=== PATIENT | female | born 1995 | race Caucasian/White ===

== ENCOUNTER 2024-09-12 10:12 | Observation (INO) ==
[2024-09-12 11:23] VITALS: BP 144/74
[2024-09-12] MEDS ORDERED: Nalbuphine 10 MG/ML 1 ML VIAL IV PRN (12:24)
[2024-09-12] MEDS ORDERED: Lidocaine 1% VIAL 10 MG/ML 30 ML VIAL INJ PRN (12:24)
[2024-09-12] MEDS ORDERED: Lactated Ringers 1000 ml BAG 1,000 ML IV ONE (12:24)
[2024-09-12] MEDS ORDERED: Lactated Ringers 1000 ml BAG 1,000 ML IV SCH (13:00)
[2024-09-12 14:01] LABS: Urine Creatinine Concentration 74.37 mg/dL (20.00-320.00); Urine TP Creat Ratio 0.2 mg/mg
[2024-09-12 14:11] LABS: Urine Benzodiazepine Screen None Detected (None Detect); Urine Cannabinoids Screen None Detected (None Detect); Urine Opiates Screen None Detected (None Detect)
[2024-09-12] MEDS: miSOPROStol 100 mcg TAB VAGINAL SCH (14:27)
[2024-09-12 14:37] LABS: Potassium 3.8 mmol/L (3.5-5.0)
[2024-09-12 14:38] LABS: Albumin 3.8 g/dL (3.5-5.7); Albumin/Globulin Ratio 1.5 (1-3); Calcium 8.9 mg/dL (8.6-10.3); Creatinine, Serum 0.44 mg/dL (0.51-0.95); Globulin 2.6 g/dL (2-4); Total Bilirubin 0.4 mg/dL (0.2-1.0); Total Protein 6.4 g/dL (6.4-8.9); Uric Acid 3.4 mg/dL (2.3-6.6); eGFR CKD-EPI 132.5 (>60)
[2024-09-12 14:41] LABS: ABS Basophils 0.1 10^3/uL (0.0-0.1); ABS Eosinophils 0.1 10^3/uL (0.0-0.5); ABS Lymphocytes 2.8 10^3/uL (1.0-4.8); ABS Monocytes 0.6 10^3/uL (0.0-0.9); ABS Neutrophils 8.3 10^3/uL (1.5-7.6); ABS Nucleated RBC 0.01 10^3/ul; Eosinophil % 0.5 %; Hematocrit 35.7 % (35-45); Hemoglobin 12.1 g/dL (11.5-14.3); Lymphocyte % 23.6 %; Mean Corpuscular Hemoglobin 28.9 pg (27-33); Mean Corpuscular Hgb Conc 33.7 g/dL (31-36); Mean Corpuscular Volume 85.8 fL (80-97); Mean Platelet Volume 7.4 fL (7.5-11.2); Nucleated Red Blood Cells % 0.1 %/100WBC (0.0-0.8); Platelet Count 368 10^3/uL (150-450); Red Blood Count 4.17 10^6/uL (3.63-4.92); Red Cell Distribution Width 13.3 % (12-17); White Blood Count 11.8 10^3/uL (3.8-11.8)
[2024-09-12] MEDS: Buffered Lidocaine 1% SYRIN 1 ml INTRADERM ONE (19:15)
[2024-09-12] MEDS: Dinoprostone 10 MG VAG.SUPP VAGINAL ONE (20:51)
== END 2024-09-13 12:25 | disposition home or self-care (01) ==
LOC: MCHOB 10:12 → MCHOBOUT 10:12 → MCHOB 12:24 → MCHOBOUT 09-13 12:25 → UNDODEPREF 09-13 12:47

== ENCOUNTER 2024-09-15 18:00 | Inpatient (IN) ==
[2024-09-15] MEDS ORDERED: Lidocaine 1% VIAL 10 MG/ML 30 ML VIAL INJ PRN (20:00)
[2024-09-15] MEDS ORDERED: Nalbuphine 10 MG/ML 1 ML VIAL IV PRN (20:00)
[2024-09-15] MEDS: Buffered Lidocaine 1% SYRIN 1 ml INTRADERM ONE (20:21)
[2024-09-15 20:25] LABS: ABS Eosinophils 0.1 10^3/uL (0.0-0.5); ABS Lymphocytes 2.4 10^3/uL (1.0-4.8); ABS Monocytes 0.6 10^3/uL (0.0-0.9); ABS Neutrophils 8.3 10^3/uL (1.5-7.6); Eosinophil % 0.6 %; Hematocrit 34.9 % (35-45); Hemoglobin 11.7 g/dL (11.5-14.3); Lymphocyte % 20.8 %; Mean Corpuscular Hemoglobin 28.6 pg (27-33); Mean Corpuscular Hgb Conc 33.4 g/dL (31-36); Mean Corpuscular Volume 85.5 fL (80-97); Mean Platelet Volume 7.4 fL (7.5-11.2); Platelet Count 367 10^3/uL (150-450); Red Blood Count 4.08 10^6/uL (3.63-4.92); Red Cell Distribution Width 13.5 % (12-17); White Blood Count 11.5 10^3/uL (3.8-11.8)
[2024-09-15 20:29] LABS: Urine Appearance Clear; Urine Bilirubin Negative (Negative); Urine Blood Negative (Negative); Urine Color Light-Yellow; Urine Glucose 3+ (>=300 mg/dL) (Negative); Urine Ketones Negative (Negative); Urine Nitrite Negative (Negative); Urine Protein Negative (Negative); Urine Specific Gravity 1.011 (1.002-1.030); Urine Urobilinogen Negative (Negative); Urine pH 5.5 (5.0-8.0)
[2024-09-15 20:53] LABS: Urine Creatinine Concentration 58.71 mg/dL (20.00-320.00); Urine TP Creat Ratio 0.17 mg/mg
[2024-09-15 20:54] LABS: Albumin 3.8 g/dL (3.5-5.7); Albumin/Globulin Ratio 1.5 (1-3); Calcium 9.3 mg/dL (8.6-10.3); Creatinine, Serum 0.59 mg/dL (0.51-0.95); Globulin 2.5 g/dL (2-4); Potassium 3.8 mmol/L (3.5-5.0); Total Bilirubin 0.2 mg/dL (0.2-1.0); Total Protein 6.3 g/dL (6.4-8.9); eGFR CKD-EPI 123.5 (>60)
[2024-09-15 21:02] LABS: Urine Benzodiazepine Screen None Detected (None Detect); Urine Cannabinoids Screen None Detected (None Detect); Urine Opiates Screen None Detected (None Detect)
[2024-09-15] MEDS: miSOPROStol 100 mcg TAB VAGINAL ONE (22:34)
[2024-09-15] MEDS: Famotidine IV 10 MG/ML 2 ml VIAL (20 mg) IV SLOW PU PRN (23:09)
[2024-09-15] MEDS: Famotidine IV 10 MG/ML 2 ml VIAL (20 mg) ONE (23:13)
[2024-09-16] MEDS: Lactated Ringers 1000 ml BAG 1,000 ML IV SCH (02:47)
[2024-09-16] MEDS: miSOPROStol 100 mcg TAB VAGINAL ONE ×4 (03:48→20:02)
[2024-09-16] MEDS ORDERED: Famotidine IV 10 MG/ML 2 ml VIAL (20 mg) IV SLOW PU SCH (09:00)
[2024-09-16] MEDS: miSOPROStol 100 mcg TAB ONE (14:49)
[2024-09-17] MEDS: Lidocaine 2% JELLY 6 ML Topical TOPICAL ONE (00:22)
[2024-09-17] MEDS: Dinoprostone 10 MG VAG.SUPP VAGINAL ONE (00:45)
[2024-09-17] MEDS: Polyethylene Glycol 3350 17 GM PACKET PO PRN (01:33)
[2024-09-17] MEDS: Lactated Ringers 1000 ml BAG 1,000 ML IV ONE ×2 (05:33→20:48)
[2024-09-17] MEDS: Ondansetron 4 mg VIAL 2 MG/ML 2 ml VIAL IV PRN (05:55)
[2024-09-17 06:22] LABS: ABS Eosinophils 0.1 10^3/uL (0.0-0.5); ABS Lymphocytes 2.8 10^3/uL (1.0-4.8); ABS Monocytes 0.8 10^3/uL (0.0-0.9); ABS Neutrophils 8.3 10^3/uL (1.5-7.6); Eosinophil % 0.5 %; Hematocrit 37.4 % (35-45); Hemoglobin 12.9 g/dL (11.5-14.3); Lymphocyte % 23.8 %; Mean Corpuscular Hemoglobin 29.2 pg (27-33); Mean Corpuscular Hgb Conc 34.4 g/dL (31-36); Mean Corpuscular Volume 84.9 fL (80-97); Mean Platelet Volume 6.8 fL (7.5-11.2); Platelet Count 361 10^3/uL (150-450); Red Blood Count 4.41 10^6/uL (3.63-4.92); Red Cell Distribution Width 13.6 % (12-17); White Blood Count 11.9 10^3/uL (3.8-11.8)
[2024-09-17 06:44] LABS: Albumin 3.8 g/dL (3.5-5.7); Albumin/Globulin Ratio 1.2 (1-3); Calcium 9.1 mg/dL (8.6-10.3); Creatinine, Serum 0.53 mg/dL (0.51-0.95); Globulin 3.3 g/dL (2-4); Potassium 3.8 mmol/L (3.5-5.0); Total Bilirubin 0.3 mg/dL (0.2-1.0); Total Protein 7.1 g/dL (6.4-8.9); eGFR CKD-EPI 126.7 (>60)
[2024-09-17] MEDS: OBEPIDURAL (200 ML) 200 ML EPIDURAL SCH (06:45)
[2024-09-17] MEDS ORDERED: Phenylephrine 40 mcg/mL 10mL (400mcg) SYRINGE IV PUSH PRN ×2 (06:47)
[2024-09-17] MEDS: Oxytocin in LR 20,000 MILLI.UNIT/1,000 ML BAG IV SCH ×2 (09:12→20:55)
[2024-09-17] MEDS ORDERED: Bupivacaine 0.5% SDV PF 30ML VIAL ONE (17:58)
[2024-09-17] MEDS ORDERED: Oxytocin 10 UNITS/ML 1 ML VIAL ONE (17:59)
[2024-09-17] MEDS: Sodium Citrate/Citric Acid LIQ 15 ML UDC PO PRN (18:10)
[2024-09-17] MEDS: OBEPIDURAL (200 ML) 200 ML EPIDURAL ONE (18:15)
[2024-09-17] MEDS: ceFOXitin 2 GM IVPREMIX 2 GM/50 ML BAG IVPB ONE (18:25)
[2024-09-17] MEDS ORDERED: Ondansetron 4 mg VIAL 2 MG/ML 2 ml VIAL ONE (18:39)
[2024-09-17] MEDS ORDERED: Dexamethasone IV 4 MG/ML VIAL 1 ml VIAL ONE (18:39)
[2024-09-17] MEDS ORDERED: Morphine PF AMP (0.5MG/ML) 5 MG/10 ML AMP ONE (18:41)
[2024-09-17] MEDS ORDERED: fentaNYL 100 mcg/2 ml 50 MCG/ML VIAL ONE (18:41)
[2024-09-17] MEDS ORDERED: Phenylephrine 40 mcg/mL 10mL (400mcg) SYRINGE ONE (19:01)
[2024-09-17] MEDS: Carboprost Tromethamine 250 mcg 1 ml VIAL ONE (19:30)
[2024-09-17] MEDS ORDERED: Witch Hazel PAD JAR TOPICAL PRN (19:48)
[2024-09-17] MEDS ORDERED: Dibucaine 1% OINT 28.35 GM TUBE PR PRN (19:48)
[2024-09-17] MEDS ORDERED: Glycerin ADULT 2.4 gm SUPP PR PRN (19:48)
[2024-09-17] MEDS ORDERED: Acetaminophen IV 1 GM/100ML 1,000 MG/100 ML BAG IV ONE (19:52)
[2024-09-17] MEDS ORDERED: Lactated Ringers 1000 ml BAG 1,000 ML IV SCH (20:00)
[2024-09-17] MEDS ORDERED: Metoclopramide 5 MG/ML VIAL (10 mg) IV PRN (20:05)
[2024-09-17] MEDS ORDERED: Ondansetron 4 mg VIAL 2 MG/ML 2 ml VIAL IV PRN (20:05)
[2024-09-17] MEDS ORDERED: Naloxone 0.4 mg VIAL 0.4 mg/ml 1 ml VIAL IV PUSH PRN (20:05)
[2024-09-17] MEDS: Acetaminophen IV 1 GM/100ML 1,000 MG/100 ML BAG IV PRN (20:09)
[2024-09-17] MEDS: miSOPROStol 100 mcg TAB VAGINAL ONE (20:47)
[2024-09-17] MEDS: Phenylephrine 40 mcg/mL 10mL (400mcg) SYRINGE ONE (20:48)
[2024-09-17] MEDS: Lidocaine 1.5% EPI 1:200,000 30 ML SDV ONE (20:48)
[2024-09-17] MEDS: cefTRIAXone 2 gm/50 mL D5W 2 GM/50 ML BAG IV ONE (20:50)
[2024-09-17] MEDS: Lactated Ringers 1000 ml BAG 1,000 ML IV SCH (21:36)
[2024-09-18 07:08] LABS: ABS Lymphocytes 1.3 10^3/uL (1.0-4.8); ABS Monocytes 0.8 10^3/uL (0.0-0.9); ABS Neutrophils 15.7 10^3/uL (1.5-7.6); Eosinophil % 0.1 %; Hematocrit 29.3 % (35-45); Hemoglobin 10.1 g/dL (11.5-14.3); Lymphocyte % 7.5 %; Mean Corpuscular Hemoglobin 29.4 pg (27-33); Mean Corpuscular Hgb Conc 34.5 g/dL (31-36); Mean Corpuscular Volume 85.3 fL (80-97); Mean Platelet Volume 6.9 fL (7.5-11.2); Platelet Count 249 10^3/uL (150-450); Red Blood Count 3.44 10^6/uL (3.63-4.92); Red Cell Distribution Width 13.4 % (12-17); White Blood Count 17.9 10^3/uL (3.8-11.8)
[2024-09-20 10:51] VITALS: BP 129/70
== END 2024-09-20 13:45 | disposition home or self-care (01) | DRG 788 ==
LOC: EDSTATUS 18:00 → MCHOBOUT 18:01 → MCHOB 19:33
PROVIDERS: ATTEND Obstetrics & Gynecology

== ENCOUNTER 2024-09-24 23:27 | Inpatient (IN) ==
[2024-09-25 00:59] LABS: Hematocrit 28.6 % (35-45); Hemoglobin 9.4 g/dL (11.5-14.3); Mean Corpuscular Hemoglobin 28.2 pg (27-33); Mean Corpuscular Volume 85.4 fL (80-97); Mean Platelet Volume 6.2 fL (7.5-11.2); Platelet Count 634 10^3/uL (150-450); Red Blood Count 3.35 10^6/uL (3.63-4.92); Red Cell Distribution Width 14.6 % (12-17); White Blood Count 19.7 10^3/uL (3.8-11.8)
[2024-09-25 01:53] LABS: Albumin 3.1 g/dL (3.5-5.7); Albumin/Globulin Ratio 1.1 (1-3); Calcium 8.6 mg/dL (8.6-10.3); Creatinine, Serum 0.64 mg/dL (0.51-0.95); Globulin 2.9 g/dL (2-4); Total Bilirubin 0.4 mg/dL (0.2-1.0); eGFR CKD-EPI 121.1 (>60)
[2024-09-25 02:09] LABS: C Reactive Protein 446.11 mg/L (<8.01)
[2024-09-25 02:32] LABS: ABS Basophils 0.1 10^3/uL (0.0-0.1); ABS Eosinophils 0.1 10^3/uL (0.0-0.5); ABS Lymphocytes 1.7 10^3/uL (1.0-4.8); ABS Neutrophils 16.8 10^3/uL (1.5-7.6); ABS Nucleated RBC 0.01 10^3/ul; Eosinophil % 0.7 %; Lymphocyte % 8.6 %; Nucleated Red Blood Cells % 0.1 %/100WBC (0.0-0.8); RBC Morphology Normal (Normal)
[2024-09-25] MEDS: metroNIDAZOLE IV 500 MG/100ML 500 MG/100 ML BAG IVPB ONE (02:50)
[2024-09-25] MEDS: Cefepime 2 GM in Dextrose 2 GM/50 ML BAG IV ONE (02:51)
[2024-09-25] MEDS: Vancomycin 1,750 MG in NS 0.9% 500 ml BAG 500 ML IVPB ONE (03:50)
[2024-09-25] MEDS: Iohexol 300 (CONTRAST) 10 ML SDV IV ONE (04:01)
[2024-09-25] MEDS ORDERED: Polyethylene Glycol 3350 17 GM PACKET PO PRN (06:28)
[2024-09-25] MEDS: Ampicillin ADVAN 2 GM in NS 0.9% 100 ml BAG 100 ML IVPB SCH (09:28)
[2024-09-25] MEDS: Gentamicin ADULT 410 MG in NS 0.9% 100 ml BAG 100 ML IVPB SCH (11:53)
[2024-09-25 12:40] LABS: Hematocrit 26.4 % (35-45); Hemoglobin 9.1 g/dL (11.5-14.3); Mean Corpuscular Hemoglobin 29.2 pg (27-33); Mean Corpuscular Hgb Conc 34.4 g/dL (31-36); Mean Corpuscular Volume 84.9 fL (80-97); Mean Platelet Volume 6.1 fL (7.5-11.2); Platelet Count 610 10^3/uL (150-450); Red Blood Count 3.11 10^6/uL (3.63-4.92); Red Cell Distribution Width 14.3 % (12-17); White Blood Count 19.8 10^3/uL (3.8-11.8)
[2024-09-25 13:20] LABS: ABS Basophils 0.1 10^3/uL (0.0-0.1); ABS Eosinophils 0.1 10^3/uL (0.0-0.5); ABS Lymphocytes 2.1 10^3/uL (1.0-4.8); ABS Monocytes 0.9 10^3/uL (0.0-0.9); ABS Neutrophils 16.5 10^3/uL (1.5-7.6); ABS Nucleated RBC 0.01 10^3/ul; Eosinophil % 0.5 %; Lymphocyte % 10.7 %; RBC Morphology Normal (Normal)
[2024-09-25] MEDS: metroNIDAZOLE IV 500 MG/100ML 500 MG/100 ML BAG IVPB SCH (15:32)
[2024-09-26 06:48] LABS: Hematocrit 25.7 % (35-45); Hemoglobin 8.9 g/dL (11.5-14.3); Mean Corpuscular Hemoglobin 29.3 pg (27-33); Mean Corpuscular Hgb Conc 34.6 g/dL (31-36); Mean Corpuscular Volume 84.8 fL (80-97); Mean Platelet Volume 5.9 fL (7.5-11.2); Platelet Count 621 10^3/uL (150-450); Red Blood Count 3.03 10^6/uL (3.63-4.92); Red Cell Distribution Width 14.2 % (12-17); White Blood Count 16.2 10^3/uL (3.8-11.8)
[2024-09-26 08:13] LABS: ABS Basophils 0.1 10^3/uL (0.0-0.1); ABS Eosinophils 0.2 10^3/uL (0.0-0.5); ABS Lymphocytes 1.9 10^3/uL (1.0-4.8); ABS Monocytes 0.5 10^3/uL (0.0-0.9); ABS Neutrophils 13.6 10^3/uL (1.5-7.6); Eosinophil % 1.1 %; Lymphocyte % 11.5 %
[2024-09-27 14:09] VITALS: BP 146/83
== END 2024-09-27 15:20 | disposition home or self-care (01) | DRG 776 ==
LOC: ED 23:27 → EDHOLD 09-25 06:28 → SSU 09-25 10:52
PROVIDERS: ADMIT Obstetrics & Gynecology; ATTEND Obstetrics & Gynecology